=== PATIENT | female | born 1995 | race Caucasian/White ===

== ENCOUNTER → 2017-03-26 | Outpatient (REF) | payer BC, OTHER | LOC: M LAB REF 18:38 | PROVIDERS: ATTEND Family Medicine | DX: Z12.4 Encounter for screening for malignant neoplasm of cervix (principal) ==

== ENCOUNTER → 2021-11-21 | Outpatient (CLI) | payer BC ==
[2021-11-21 15:12] LABS: HEMATOCRIT 39.2 % (36.0-47.0); HEMOGLOBIN 12.9 g/dl (12.0-15.5); MEAN CORPUSCULAR HEMOGLOBIN 29.9 pg (27.0-33.0); MEAN CORPUSCULAR HGB CONC 32.9 g/dl (32.0-36.5); MEAN CORPUSCULAR VOLUME 90.7 fl (80.0-96.0); PLATELET COUNT, AUTOMATED 342 10^3/uL (150-450); RED BLOOD COUNT 4.32 10^6/uL (4.00-5.40); WHITE BLOOD COUNT 13.1 10^3/uL (4.0-10.0)
[2021-11-21 16:59] LABS: GC DNA AMPLIFICATION NEGATIVE (NEGATIVE)
== END ==
LOC: M PLALAB 12:52
PROVIDERS: ATTEND Obstetrics & Gynecology
DX: Z34.92 Encounter for supervision of normal pregnancy, unspecified, second trimester (principal); Z3A.23 23 weeks gestation of pregnancy

== ENCOUNTER → 2021-11-26 | Outpatient (CLI) | payer BC | LOC: M LAB 07:44 | PROVIDERS: ATTEND Obstetrics & Gynecology | DX: O99.810 Abnormal glucose complicating pregnancy (principal) ==

== ENCOUNTER → 2022-01-16 | Outpatient (REF) | payer BC | LOC: M SFHCWAGY 09:56 | PROVIDERS: ATTEND Specialist | DX: Z36.85 Encounter for antenatal screening for Streptococcus B (principal); Z3A.00 Weeks of gestation of pregnancy not specified ==

== ENCOUNTER → 2022-01-24 | Outpatient (CLI) | payer BC ==
[~2022-01-24] MED LIST: PRENTAB9 PO
[2022-01-24 14:00] LABS: HEMATOCRIT 41.1 % (36.0-47.0); HEMOGLOBIN 13.5 g/dl (12.0-15.5); MEAN CORPUSCULAR HEMOGLOBIN 28.7 pg (27.0-33.0); MEAN CORPUSCULAR HGB CONC 32.8 g/dl (32.0-36.5); MEAN CORPUSCULAR VOLUME 87.3 fl (80.0-96.0); PLATELET COUNT, AUTOMATED 303 10^3/uL (150-450); RED BLOOD COUNT 4.71 10^6/uL (4.00-5.40); WHITE BLOOD COUNT 9.4 10^3/uL (4.0-10.0)
[2022-01-24 14:30] LABS: TOTAL PROTEIN,RANDOM URINE 15.2 MG/DL (0.0-12.0)
[2022-01-24 14:32] LABS: ALT/SGPT 18 U/L (12-78); BILIRUBIN,TOTAL 0.2 MG/DL (0.2-1.0); CREATININE FOR GFR 0.63 MG/DL (0.55-1.30); GLOMERULAR FILTRATION RATE > 60.0 (>60); LDH LACTATE DEHYDROGENASE 161 U/L (84-246); URIC ACID 5.2 MG/DL (2.6-6.0)
== END ==
LOC: M PLALAB 09:33
PROVIDERS: ATTEND Advanced Practice Midwife
DX: O13.9 Gestational [pregnancy-induced] hypertension without significant proteinuria, unspecified trimester (principal); Z3A.00 Weeks of gestation of pregnancy not specified

== ENCOUNTER 2022-01-27 09:10 | Inpatient (IN) | payer BC ==
[~2022-01-27] VITALS: Ht 162.6 cm; Wt 83.6 kg
[2022-01-27] VITALS (12 sets, daily range): BP systolic 121–142; BP diastolic 71–96
[2022-01-27] MEDS ORDERED: PRENTAB9 PO (10:18)
[2022-01-27 10:31] LABS: HEMATOCRIT 41.5 % (36.0-47.0); HEMOGLOBIN 13.5 g/dl (12.0-15.5); MEAN CORPUSCULAR HEMOGLOBIN 28.5 pg (27.0-33.0); MEAN CORPUSCULAR HGB CONC 32.5 g/dl (32.0-36.5); MEAN CORPUSCULAR VOLUME 87.7 fl (80.0-96.0); PLATELET COUNT, AUTOMATED 316 10^3/uL (150-450); RED BLOOD COUNT 4.73 10^6/uL (4.00-5.40); WHITE BLOOD COUNT 8.9 10^3/uL (4.0-10.0)
[2022-01-27 11:09] LABS: ALT/SGPT 18 U/L (12-78); BILIRUBIN,TOTAL 0.3 MG/DL (0.2-1.0); CREATININE FOR GFR 0.64 MG/DL (0.55-1.30); GLOMERULAR FILTRATION RATE > 60.0 (>60); LDH LACTATE DEHYDROGENASE 176 U/L (84-246); URIC ACID 5.6 MG/DL (2.6-6.0)
[2022-01-27 12:16] LABS: CREATININE,RANDOM URINE 39.6 MG/DL; TOTAL PROTEIN,RANDOM URINE 7.4 MG/DL (0.0-12.0)
[2022-01-27] MEDS ORDERED: LACTATED RINGER'S 1000 ML IV STA (12:44)
[2022-01-27] MEDS ORDERED: OXYTOCIN DRIP 30 UNITS in IV 1 EA IV PRN (12:45)
[2022-01-27] MEDS ORDERED: LIDOCAINE 1% MDV 20ML VIAL INFIL PRN (12:45)
[2022-01-27] MEDS ORDERED: CARBOPROST TROMETHAMINE 250 MCG/ML AMP IM PRN (12:45)
[2022-01-27] MEDS ORDERED: TRANEXAMIC ACID INJection 1,000 MG in NS 100 ML IV PRN (12:45)
[2022-01-27] MEDS ORDERED: OXYTOCIN INJ 10 UNITS/ML VIAL (J2590) IM PRN (12:45)
[2022-01-27] MEDS: miSOPROStol 50MCG 1/2 TABLET PO SCH ×3 (13:38→23:31)
[2022-01-28] VITALS (35 sets, daily range): BP systolic 121–176; BP diastolic 62–100
[2022-01-28] MEDS: miSOPROStol 50MCG 1/2 TABLET PO SCH (02:00)
[2022-01-28] MEDS ORDERED: OXYTOCIN DRIP 30 UNITS in IV 1 EA IV SCH ×2 (11:05→22:30)
[2022-01-28] MEDS: LR 1,000 ML IV SCH ×2 (11:29→18:50)
[2022-01-28] MEDS ORDERED: PROMETHAZINE 25MG/ML 1ML VIAL IV PRN (18:25)
[2022-01-28] MEDS ORDERED: BUTORPHANOL 2 MG/ML INJ (J0595) IV ONE (19:00)
[2022-01-28 22:13] LABS: CORD GAS ABE A -13.6; CORD GAS HCO3 A 15.9 MEQ/L; CORD GAS O2 SAT A 60.7 %; CORD GAS PH A 7.121 UNITS; CORD GAS PO2 A 30.8 mmHg; CORD GAS SBC A 13.6 MEQ/L; CORD GAS TCO2 A 17.5 MEQ/L
[2022-01-28 22:14] LABS: CORD GAS ABE V -14.3; CORD GAS HCO3 V 14.2 MEQ/L; CORD GAS O2 SAT V 59.7 %; CORD GAS PCO2 V 42.4 mmHg; CORD GAS PH V 7.144 UNITS; CORD GAS PO2 V 28.6 mmHg; CORD GAS SBC V 13.2 MEQ/L; CORD GAS TCO2 V 15.5 MEQ/L
[2022-01-28] MEDS ORDERED: MOM 30ML SUSPENSION UDC PO PRN (22:30)
[2022-01-28] MEDS ORDERED: DIBUCAINE 1% OINTMENT 30GM TOP PRN (22:30)
[2022-01-28] MEDS ORDERED: IBUPROFEN 600MG TAB PO PRN (22:30)
[2022-01-28] MEDS ORDERED: ANUSOL HC CREAM 30GM TOP PRN (22:30)
[2022-01-28] MEDS ORDERED: RHOGAM 300 MCG (1500 IU) INJ (J2790) IM SCH (22:30)
[2022-01-28] MEDS ORDERED: ACETAMINOPHEN TAB 650MG DOSE (2X325MG) PO PRN (22:30)
[2022-01-28] MEDS ORDERED: ACETAMINOPHEN 500 MG TAB PO PRN (22:30)
[2022-01-28] MEDS ORDERED: DOCUSATE SODIUM 100MG CAPSULE PO PRN (22:30)
[2022-01-28] MEDS ORDERED: IBUPROFEN 800 MG TAB PO PRN (22:30)
[2022-01-28] MEDS ORDERED: METHYLERGONOVINE MALEATE 0.2 MG TAB PO PRN (22:30)
[2022-01-29 00:01] VITALS: BP 142/80
[2022-01-29] MEDS: LR 1,000 ML IV SCH (02:12)
[2022-01-29 06:00] VITALS: BP 139/84
[2022-01-29] MEDS: PRENATAL VITAMINS CHEWABLE TABLET PO SCH (07:53)
[2022-01-29 18:00] VITALS: BP 143/86
[2022-01-29 22:00] VITALS: BP 145/70
[2022-01-30] MEDS: PRENATAL VITAMINS CHEWABLE TABLET PO SCH (08:23)
[2022-01-30 08:57] VITALS: BP 134/86
[2022-01-30] MEDS ORDERED: MEASLES,MUMPS,RUBELLA VACCINE INJ (MMR-II) (90707) SC.IMMUN ONE (09:00)
[2022-01-30] MEDS ORDERED: ACET-683 PO (11:52)
[2022-01-30] MEDS ORDERED: IBUP80TA PO (11:52)
== END 2022-01-30 12:18 | disposition home or self-care (01) | DRG 560 ==
LOC: M LDO 09:10 → M LDI 12:36 → M OBS 01-28 23:58
PROVIDERS: ADMIT Advanced Practice Midwife; ATTEND Advanced Practice Midwife
PROC: 10E0XZZ Delivery of Products of Conception, External Approach (ICD-10-PCS; principal; 2022-01-28)
PROC: 0KQM0ZZ Repair Perineum Muscle, Open Approach (ICD-10-PCS; 2022-01-28)
DX: O13.4 Gestational [pregnancy-induced] hypertension without significant proteinuria, complicating childbirth (principal); O69.1XX0 Labor and delivery complicated by cord around neck, with compression, not applicable or unspecified; Z37.0 Single live birth; Z3A.37 37 weeks gestation of pregnancy; O70.1 Second degree perineal laceration during delivery

== ENCOUNTER 2022-07-22 16:33 | Emergency (ER) | payer BC ==
[~2022-07-22] VITALS: Ht 162.6 cm; Wt 67.5 kg
[~2022-07-22 16:33] MED LIST changes: +ACET-683 PO; +IBUP80TA PO
[2022-07-22] MEDS ORDERED: CLAR10CA3 PO (16:40)
[2022-07-22] MEDS ORDERED: ALEV220T22 PO (16:40)
[2022-07-22] MEDS ORDERED: CYCLOBENZAPRINE 10MG TABLET PO ONE (18:55)
[2022-07-22] MEDS ORDERED: ISOVUE-370 76% 100ML VIAL As Ordered ONE (19:24)
[2022-07-22 19:30] LABS: BASO # 0.1 10^3/uL (0.0-0.2); BASO % 0.6 % (0.0-1.0); EOS # 0.1 10^3/uL (0.0-0.5); EOS % 0.8 % (0.0-3.0); HEMATOCRIT 44.6 % (36.0-47.0); HEMOGLOBIN 14.6 g/dl (12.0-15.5); LYMPH # 2.7 10^3/uL (1.5-5.0); LYMPH % 23.9 % (24.0-44.0); MEAN CORPUSCULAR HGB CONC 32.7 g/dl (32.0-36.5); MEAN CORPUSCULAR VOLUME 88.5 fl (80.0-96.0); MONO # 0.8 10^3/uL (0.0-0.8); MONO % 6.9 % (2.0-8.0); NEUTROPHILS # 7.5 10^3/uL (1.5-8.5); NEUTROPHILS % 67.5 % (36.0-66.0); PLATELET COUNT, AUTOMATED 372 10^3/uL (150-450); RED BLOOD COUNT 5.04 10^6/uL (4.00-5.40); WHITE BLOOD COUNT 11.1 10^3/uL (4.0-10.0)
[2022-07-22 19:53] LABS: HCG, SERUM QUANTITATIVE < 2.6 MIU/ML (<4.2)
[2022-07-22 19:54] LABS: ALBUMIN 4.5 G/DL (3.2-5.2); ALKALINE PHOSPHATASE 150 U/L (46-116); ALT/SGPT 19 U/L (7.0-40); AST/SGOT 13 U/L (<34); BILIRUBIN,DIRECT 0.1 MG/DL (<0.4); BILIRUBIN,TOTAL 0.4 MG/DL (0.3-1.2); TOTAL PROTEIN 7.6 G/DL (5.7-8.2)
[2022-07-22 20:04] LABS: ERYTHROCYTE SEDIMENTATION RATE 38 mm/hr (0-20)
[2022-07-22] MEDS ORDERED: AUGMENTIN 875 MG TAB PO ONE (20:50)
[2022-07-22] MEDS ORDERED: AMOX875T2 PO (20:59)
[2022-07-22] MEDS ORDERED: CYCL-707 PO (21:15)
[2022-07-22 21:16] VITALS: BP 125/80
== END 2022-07-22 21:18 | disposition home or self-care (01) ==
LOC: M ED 16:33
DX: M54.2 Cervicalgia (principal); R59.0 Localized enlarged lymph nodes
CPT/HCPCS: 36415; 70491; 80047; 80076; 83605; 84702; 85025; 85652; 86140; 87040; 87880; 99284; Q9967

== ENCOUNTER → 2023-03-31 | Outpatient (REF) | payer BC ==
[~2023-03-31] MED LIST changes: +ALEV220T22 PO; +AMOX875T2 PO; +CLAR10CA3 PO; +CYCL-707 PO
== END ==
LOC: M PLALAB 15:08
PROVIDERS: ATTEND Advanced Practice Midwife
DX: Z53.9 Procedure and treatment not carried out, unspecified reason (principal); Z34.82 Encounter for supervision of other normal pregnancy, second trimester

== ENCOUNTER → 2023-05-04 | Outpatient (CLI) | payer BC | LOC: M WHC 11:23 | PROVIDERS: ATTEND Advanced Practice Midwife | DX: Z34.82 Encounter for supervision of other normal pregnancy, second trimester (principal); Z36.89 Encounter for other specified antenatal screening; Z3A.18 18 weeks gestation of pregnancy ==

== ENCOUNTER → 2023-08-31 | Outpatient (REF) | payer BC | LOC: M SFHCWAGY 14:54 | PROVIDERS: ATTEND Obstetrics & Gynecology | DX: Z36.89 Encounter for other specified antenatal screening (principal); Z3A.35 35 weeks gestation of pregnancy ==

== ENCOUNTER 2023-09-22 05:18 | Inpatient (IN) | payer BC ==
[2023-09-22] VITALS (9 sets, daily range): BP systolic 116–131; BP diastolic 55–71; TEMP 97.5; O2SAT 96–98
[~2023-09-22] VITALS: Ht 162.6 cm; Wt 82.5 kg
[~2023-09-22 05:18] MED LIST changes: +ASPI81TA26 PO
[2023-09-22] MEDS ORDERED: HOME MED LIST COMPLETE! XX SCH (05:40)
[2023-09-22] MEDS: LACTATED RINGER'S 1000 ML IV STA (06:07)
[2023-09-22 06:18] LABS: HEMATOCRIT 35.1 % (36.0-47.0); HEMOGLOBIN 11.2 g/dl (12.0-15.5); MEAN CORPUSCULAR HEMOGLOBIN 24.5 pg (27.0-33.0); MEAN CORPUSCULAR HGB CONC 31.9 g/dl (32.0-36.5); MEAN CORPUSCULAR VOLUME 76.6 fl (80.0-96.0); PLATELET COUNT, AUTOMATED 396 10^3/uL (150-450); RED BLOOD COUNT 4.58 10^6/uL (4.00-5.40); WHITE BLOOD COUNT 10.1 10^3/uL (4.0-10.0)
[2023-09-22] MEDS: LR 1,000 ML IV SCH ×2 (06:46→15:07)
[2023-09-22 07:25] LABS: HEPATITIS C VIRUS ABY INDEX < 0.02 INDEX (<0.8)
[2023-09-22] MEDS: BICITRA 30ML SOLN UDC PO ONE (07:34)
[2023-09-22] MEDS: ceFAZolin SOD 2 GM in IV 1 EA IV ONE (07:34)
[2023-09-22] MEDS ORDERED: ONDANSETRON 4MG 2ML VIAL As Ordered ONE (08:20)
[2023-09-22] MEDS ORDERED: KETOROLAC 60MG 2ML VIAL As Ordered ONE (08:20)
[2023-09-22] MEDS ORDERED: OXYTOCIN 30UNITS IN 0.9% NaCl 500ML IV BAG As Ordered ONE (08:20)
[2023-09-22] MEDS ORDERED: PHENYLephrine 500MCG 5ML (100MCG/ML) SYRINGE As Ordered ONE (08:20)
[2023-09-22] MEDS ORDERED: METOCLOPRAMIDE INJ 10MG/2ML VIAL As Ordered ONE (08:20)
[2023-09-22] MEDS ORDERED: ePHEDrine SULFATE 25 MG/5 ML(5MG/ML) SYRINGE As Ordered ONE (08:20)
[2023-09-22] MEDS ORDERED: ACETAMINOPHEN 1000MG 100ML IV BAG As Ordered ONE (08:20)
[2023-09-22] MEDS ORDERED: MORPHINE PRES-FREE INJ 10 MG/10 ML VIAL As Ordered ONE (08:20)
[2023-09-22] MEDS ORDERED: ANUSOL HC CREAM 30GM TOP PRN (09:05)
[2023-09-22] MEDS ORDERED: ONDANSETRON 4MG 2ML VIAL IV PRN ×2 (09:05→09:30)
[2023-09-22] MEDS ORDERED: SIMETHICONE 80MG CHEW TAB PO PRN (09:05)
[2023-09-22] MEDS ORDERED: PERCOCET 5MG/325MG TAB PO PRN ×2 (09:05)
[2023-09-22] MEDS ORDERED: RHO(D) IMMUNE GLOBULIN/MALTOSE 500MCG(2500IU)/2.2ML VIAL (WINRHO) IM SCH (09:05)
[2023-09-22] MEDS: OXYTOCIN DRIP 30 UNITS in IV 1 EA IV SCH (09:05)
[2023-09-22] MEDS ORDERED: MORPHINE 4 MG/ML 1ML VIAL IV PRN (09:05)
[2023-09-22] MEDS ORDERED: PERCOCET PO (09:16)
[2023-09-22] MEDS ORDERED: COLA100C5 PO (09:16)
[2023-09-22] MEDS ORDERED: IBUP80TA PO (09:16)
[2023-09-22] MEDS ORDERED: oxyCODONE 5MG TAB PO PRN (09:30)
[2023-09-22] MEDS ORDERED: METOCLOPRAMIDE INJ 10MG/2ML VIAL IV PRN (09:30)
[2023-09-22] MEDS ORDERED: diphenhydrAMINE 50MG/ML VIAL IV PRN (09:30)
[2023-09-22] MEDS ORDERED: MEPERIDINE 25 MG/ML 1ML VIAL IV PRN (09:30)
[2023-09-22] MEDS ORDERED: fentaNYL 100 MCG/2 ML INJECTION IV PRN (09:30)
[2023-09-22] MEDS ORDERED: HYDROMORPHONE HCL 0.5 MG/ 0.5 ML SYRINGE IV PRN (09:30)
[2023-09-22] MEDS ORDERED: **NOTE PATIENT COMMENT** MISC XX SCH (09:30)
[2023-09-22] MEDS ORDERED: NALOXONE INJ 0.4MG/1ML VIAL IV PRN ×2 (09:30)
[2023-09-22] MEDS: KETOROLAC 30 MG/ML 1ML VIAL IV SCH (15:35)
[2023-09-22] MEDS: ACETAMINOPHEN 500 MG TAB PO PRN (16:41)
[2023-09-22] MEDS: DOCUSATE SODIUM 100MG CAPSULE PO SCH (20:59)
[2023-09-22] MEDS: SLF 3 ML SYR IV SCH (21:00)
[2023-09-23 02:00] VITALS: BP 113/59; O2SAT 96
[2023-09-23 05:59] VITALS: BP 107/59; O2SAT 100
[2023-09-23 06:17] LABS: MEAN CORPUSCULAR HEMOGLOBIN 24.4 pg (27.0-33.0); MEAN CORPUSCULAR HGB CONC 31.1 g/dl (32.0-36.5); MEAN CORPUSCULAR VOLUME 78.4 fl (80.0-96.0); RED BLOOD COUNT 3.28 10^6/uL (4.00-5.40); WHITE BLOOD COUNT 11.6 10^3/uL (4.0-10.0)
[2023-09-23 06:37] LABS: HEMATOCRIT 25.7 % (36.0-47.0); PLATELET COUNT, AUTOMATED 263 10^3/uL (150-450)
[2023-09-23] MEDS: PRENATAL VITAMINS CHEWABLE TABLET PO SCH (08:05)
[2023-09-23 10:00] VITALS: BP 126/59; O2SAT 99
[2023-09-23] MEDS: IBUPROFEN 800 MG TAB PO SCH (11:00)
[2023-09-23 14:00] VITALS: BP 111/61; O2SAT 98
[2023-09-23 17:45] VITALS: BP 141/77; O2SAT 100
[2023-09-23 22:00] VITALS: BP 131/66; O2SAT 98
[2023-09-24 02:00] VITALS: BP 134/70; O2SAT 97
[2023-09-24 06:00] VITALS: BP 133/74; O2SAT 97
[2023-09-24] MEDS: MEASLES,MUMPS,RUBELLA VACCINE INJ (MMR-II) SC.IMMUN ONE (07:11)
[2023-09-24 09:37] VITALS: BP 131/73; O2SAT 99
== END 2023-09-24 12:53 | disposition home or self-care (01) | DRG 540 ==
LOC: M LDI 05:18 → M OBS 10:32
PROVIDERS: ADMIT Obstetrics & Gynecology; ATTEND Obstetrics & Gynecology
PROC: 10D00Z1 Extraction of Products of Conception, Low, Open Approach (ICD-10-PCS; principal; 2023-09-22 07:30)
DX: O66.0 Obstructed labor due to shoulder dystocia (principal); Z37.0 Single live birth; Z3A.39 39 weeks gestation of pregnancy